=== PATIENT | female | born 1950 | race Caucasian/White ===

== ENCOUNTER 2019-11-26 08:48 | Outpatient (RCR) | payer MEDICARE, SELFPAY | END 2020-02-10 14:40 | disposition home or self-care (01) | LOC: PT 08:48 | DX: I25.10 Atherosclerotic heart disease of native coronary artery without angina pectoris (principal) | CPT/HCPCS: 93798 ==

== ENCOUNTER 2023-07-19 17:24 | Outpatient (CLI) | payer MEDICARE, SELFPAY ==
--- NOTE | 2023-07-19 17:40 | XR_ITS ---
PROCEDURE INFORMATION: Exam: XR Right Ankle Exam date and time: 07/19/2023 5:41 PM Age: 72 years old Clinical indication: Pain; Ankle; Right; Additional info: Right distal tib fib/ right ankle pain , swelling TECHNIQUE: Imaging protocol: Radiologic exam of the right ankle. Views: 3 or more views. COMPARISON: No relevant prior studies available. FINDINGS: Bones/joints: No acute fracture or dislocation. Calcaneal enthesophyte. Joint spaces preserved. Soft tissues: Soft tissue edema about the ankle. IMPRESSION: No acute osseous abnormality.
== END 2023-07-19 23:59 | disposition home or self-care (01) ==
LOC: RAD 17:29
PROVIDERS: PCP Physician Assistant; Visit Provider Internal Medicine Adolescent Medicine
DX: M25.571 Pain in right ankle and joints of right foot (principal)
CPT/HCPCS: 73610

== ENCOUNTER 2024-04-23 11:27 | Outpatient (CLI) | payer MEDICARE, SELFPAY ==
--- NOTE | 2024-04-23 11:32 | XR_ITS ---
FINAL REPORT CLINICAL HISTORY: ACURE RIGHT PAIN FINDINGS: RIGHT KNEE Three views were obtained. There is no fracture or dislocation. There is a large joint effusion. Calcifications are seen within the suprapatellar bursa, could represent synovial calcifications, mass, or old avulsion fracture fragment. Mild degenerative changes are present. IMPRESSION: Large joint effusion with calcifications in the suprapatellar bursa, possibly posttraumatic. CT correlation is recommended. Reviewed, Interpreted and Dictated by Kait Arreaga MD Transcribed by Robyn Andersen Authenticated and [facility]
== END 2024-04-23 23:59 | disposition home or self-care (01) ==
LOC: RAD 11:28
PROVIDERS: PCP Internal Medicine Adolescent Medicine; Visit Provider Internal Medicine Adolescent Medicine
DX: M25.561 Pain in right knee (principal)
CPT/HCPCS: 73562

== ENCOUNTER 2025-02-03 11:14 | Outpatient (CLI) | payer MEDICARE, SELFPAY ==
--- OUTSIDE RECORDS SUMMARY | 2024-12-12 01:43 | XMS_ITS | Continuity of Care Document ---
Author Organization [facility] Phone Care Team Providers Care Behavior Management Specialist Name Role Phone BRANDT WEBBER Primary Attending [phone] BRANDT WEBBER Admitting BRANDT WEBBER Unavailable BRANDT WEBBER Primary Care ALLERGIES AND ADVERSE REACTIONS ALLERGIES AND ADVERSE REACTIONS Code System Allergy Substance Adverse Reaction Date Reaction (Severity) Comment Status Reported By Updated [place] [id number] SNOMED CT SULFA ANTIBIOTICS Adverse reaction to substance u active [id number] on February 01, 2016 5:24:11 PM [facility] FAMILY HISTORY RELATION: Father Status: Cause of : Unknown Age at : Unknown SNOMED-CT Diagnosis Age At Onset [id number] Hypertensive disorder [id number] Heart disease RELATION: Mother Status: Cause of : Unknown Age at : Unknown SNOMED-CT Diagnosis Age At Onset [id number] Chronic obstructive lung disease RESULTS Patient: JERZY John Date of : October [birth year] LABORATORY RESULTS Information is not available LABORATORY NARRATIVE RESULTS Information is not available RADIOLOGY RESULTS ORDER 100: DE DEXA AXIAL (LO INC: [id number]) ORDER DATE: December 10, 2024 12:42:00 PM [facility] PERFORMING LAB: [address] [id number] Final Result Date: November 202024 1:04:[address] [place] [address] Name: SEAMUS BERTRAND Exam Date: 12/10/2024 : 1950 Age 74 years Gender: F Physician: BRANDT WEBBER Facility: [facility] Facility HSV: Outpatient Exam: DE DEXA AXIAL EXAMINATION: DUAL X-RAY ABSORPTIOMETRY (DXA) FOR BONE MINERAL DENSITY. CLINICAL INDICATION: Screening. CLINICAL HISTORY: 74 years old, Female. Postmenopausal. TECHNIQUE: An axial (e.g., hips, spine) and/or appendicular (e.g., radius) exam was performed, as appropriate, using Ooploo densitometer. Images are obtained for bone mineral density measurement and are not obtained for diagnostic purposes. [id number] COMPARISON: 06/16/2021. FINDINGS: Scan quality: Good. LUMBAR SPINE (L1-L4): BMD (in g/cm*2): 1.373. T-score: 1.6. Z-score: 3.2. Rate of change from previous exam: 4.5%. LEFT FOREARM (RADIUS 33%): BMD (in g/cm*2): 0.580. T-score: -1.9. Z-score: 0.1. Rate of change from previous exam: -14.0%. FRAX 10-YEAR PROBABILITY OF FRACTURE: FRAX not reported as there is no evaluable hip. IMPRESSION: Osteopenia based on BMD. World Health Organization criteria for BMD impression classify patients as: - Normal (T-score at or above -1.0). - Osteopenia (T-score between -1.0 and -2.5). - Osteoporosis (T-score at or below -2.5). Per the Bone Health and Osteoporosis Foundation the FRAX tool is most useful in patients with low femoral neck bone mineral density (osteopenia). FRAX is calculated per request. RECOMMENDATIONS: 1. All patients should optimize their calcium and vitamin D intake. 2. Consider FDA-approved medical therapies in postmenopausal women and men aged 50 years and older, based on the following: - A hip or vertebral (clinical or morphometric) fracture. - T-score less than or equal to -2.5 at the femoral neck or spine after appropriate evaluation to exclude secondary causes. - Low bone density (T-score between -1.0 and -2.5 at the femoral neck or spine) and a 10-year probability of a hip fracture greater than or equal to 3% or a 10-year probability of a major osteoporosis-related fracture greater than or equal to 20% based on FRAX calculation. - Clinician judgment and/or patient preferences may indicate treatment for people with 10-year fracture probabilities above or below these levels. Legally authenticated by DEONNA ELY MD 2024-12-10 09:04:53 - Further guidance on treatment can be found at the National Osteoporosis Foundation's website bonesource.org. 3. Patients with diagnosis of osteoporosis or at high risk for fracture should have regular bone mineral density tests. For patients eligible for Medicare, routine testing is allowed once every 2 years. The testing frequency can be increased to one year for patients who have rapidly progressing disease, those who are receiving or discontinuing medical therapy to restore bone mass or have additional risk factors. Electronically signed by: Stevan Hardin MD 12/10/2024 10:37 AM EDT Dictated By: Stevan Hardin Transcribed By: Transcribed On: 12/10/2024 9:04 AM Electronically signed by: Stevan Hardin 12/10/2024 Thank you for referring JERZY SEAMUS to [facility]. Legally authenticated by DEONNA ELY MD 2024-12-10 09:04:53 PATHOLOGY NARRATIVE RESULTS Information is not available MICROBIOLOGY RESULTS No Micro Labs/Results Exist for Patient BLOOD ADMIN RESULTS Information is not available MEDICATIONS HOME MEDICATIONS Status RXNORM NDC Medication Dose Route Frequency Dates Comments Reported By Updated By Drug Treatment Unknown DISCHARGE MEDICATIONS Status RXNORM NDC Medication Dose Route Frequency Dates Dis pense Data Comments Physician Updated By No Discharge Medication Info rmation Available INPATIENT MEDICATIONS Status RXNORM NDC Medication Dose Route Frequency Rat e Quantity Dates Indication Dispense Data Comments Physician Updated By No Inpatient Medication Info rmation Available SOCIAL HISTORY SOCIAL HISTORY - Smoking Status SNOMED-CT Social History Element Description Effective Dates Offered Cessation Comment Updated By [id number] Historical Tobacco smoking status Never Smoked [id number] on May 30, 2021 5:11:22 PM [facility] SOCIAL HISTORY - Gender Sex: Female SOCIAL HISTORY - Status : status i nformation is not available Intention in Next Year: intention information is not available SOCIAL HISTORY - Assessments Code System Description Status Date Value of Assessment Updated By Comment Assessment Information is no t available SOCIAL HISTORY - [place] Affiliation [place] information is not av ailable SOCIAL HISTORY - Legal Sex Legal Sex information is not available SOCIAL HISTORY - Sexual Behavior Sexual Orientation Gender Identity SNOMED-CT Description SNO MED -CT Description Activity Level No of Partners Partner Type UpdatedBy Information is not available SOCIAL HISTORY - Occupation Occupation information is no t available HEALTH CONCERNS Problems Concern Status Health Concern problem infor mation not available. Smoking Status Status Years Used Consumed packs p er day Health Concern smoking histo ry information not available. Family History Concern Status Health Concern family histor y information not available. ENCOUNTERS ENCOUNTER INFORMATION Reason for Visit DEXA Admission December 10, 2024 12:36:[address] [id number] Discharge December 10, 2024 12:36:00 PM [facility] DISCHARGED TO HOME OR SELF CARE ENCOUNTER DIAGNOSES Notes information is not demetra ilable. Code System Diagnosis Onset Date Diagnosis information is not available. ABSTRACT DIAGNOSES Code System Diagnosis Updated By Abatement Date Z13.820 ICD10 ENCOUNTER FOR SC REENING FOR OSTEOPOROSIS [id number] on December 08, 2024 12:03:50 PM [facility] Z13.820 ICD10 ENCOUNTER FOR SC REENING FOR OSTEOPOROSIS [id number] on December 12, 2024 6:40:49 AM [facility] M85.80 ICD10 OTHER SPECIFIED DISORDERS OF BONE DENSITY AND STRUCTURE, UNSPECIFIED SITE [id number] on December 12, 2024 6:40:53 AM [facility] CARE TEAM Care Behavior Management Specialist Role BRANDT WEBBER Primary Attending BRANDT WEBBER Admitting BRANDT WEBBER Referring BRANDT WEBBER Primary Care CARE TEAM CARE warehouse team member Role on Team Location Telecom Status Start Date End Mariusz e Updated By AKBAR CARLTON MD PCP normal December 08, 2024 12:03:50 PM [facility] December 10, 2024 12:36:00 PM [facility] [id number] on December 08, 2024 12:03:50 PM [facility] AKBAR CARLTON MD Referring normal December 08, 2024 12:03:50 PM [facility] December 10, 2024 12:36:00 PM [facility] [id number] on December 08, 2024 12:03:50 PM [facility] AKBAR CARLTON MD Attending normal December 08, 2024 12:03:50 PM [facility] December 10, 2024 12:36:00 PM [facility] [id number] on December 08, 2024 12:03:50 PM [facility] AKBAR CARLTON MD Admitting normal December 08, 2024 12:03:50 PM [facility] December 10, 2024 12:36:00 PM [facility] [id number] on December 08, 2024 12:03:50 PM [facility]
--- OUTSIDE RECORDS SUMMARY | 2025-01-19 09:40 | XMS_ITS | Encounter Summary ---
Author Organization [facility] Address [address] [place] [address] Care Team Providers Care Chief Accountant Name Role Phone Marco A Love MD Primary Care Provider [phone] Reason for Referral * Consultation (Routine) - Authorized Specialty Diagnoses / Procedures Referred By Contac t Referred To Contact Diagnoses Coronary artery disease due to lipid rich plaque Shawn Napoles MD [address] [place] [address] Phone: tel: fax: Referral ID Status Reason Start Date Expiration Date V isits Requested Visits Authorized [id number] Authorized 01/19/2025 07/21/2026 1 1 Encounter Details Date Type Department Care Team (Latest Contact Info) Description 01/19/2025 9:40 AM EST Office Visit [facility] [address], [address] [place] [address] Shawn Napoles MD [address] [place] [address] Hyperlipidemia, unspecified hyperlipidemia type (Primary Dx); Coronary artery disease due to lipid rich plaque Social History Tobacco Use Types Packs/Day Years Used Date Smoking Tobacco: Never Smokeless Tobacco: Never Alcohol Use Standard Drinks/Week Comments Never 0 (1 standard drink = 0.6 oz pur e alcohol) PHQ-2 Answer Date Recorded Patient Health Questionnaire-2 Score 0 01/19/2025 PHQ-9 Answer Date Recorded Patient Health Questionnaire-9 Score 0 01/19/2025 AUDIT-C Answer Date Recorded Q1: How often do you have a drink containing alcohol? Never 01/19/2025 Q2: How many drinks containi ng alcohol do you have on a typical day when you are drinking? Patient does not drink Q3: How often do you have si x or more drinks on one occasion? Never 01/19/2025 PHQ-2A Answer Date Recorded Patient Health Questionnaire-2 Score 0 01/22/2023 Comments No Sex and Gender Information Value Date Recorded Sex Assigned at Not on file Legal Sex Female 6:40 PM EDT Gender Identity Not on file Sexual Orientation Not on file documented as of this encounter Last Filed Vital Signs Vital Sign Reading Time Taken Comments Blood Pressure 132/75 01/19/2025 9:39 AM EST Pulse 53 01/19/2025 9:39 AM EST Temperature 36.7 C (98 F) 01/19/2025 9:34 AM EST Respiratory Rate 17 01/19/2025 9:34 AM EST Oxygen Saturation 97% 01/19/2025 9:34 AM EST Inhaled Oxygen Concentration - - Weight 69.4 kg (153 lb) 01/19/2025 9:34 AM EST Height 154.9 cm (5' 1 ) 01/19/2025 9:34 AM EST Body Mass Index 28.91 01/19/2025 9:34 AM EST documented in this encounter Functional Status * AUDIT-C Score Answer Date of Assessment Author 0 01/19/2025 9:34 AM EST Madeleine Hawley * Question Answer Date of Assessment Author Q1: How often do you have a drink containing alcohol? Never 01/19/2025 9:34 AM Madeleine Jean Q2: How many drinks containing alcohol do you have on a typical day when you are drinking? Patient does not drink 01/19/2025 9:34 AM Madeleine Jean Q3: How often do you have six or more drinks on one occasion? Never 01/19/2025 9:34 AM Madeleine Jean * Over the past 2 weeks, how often have you been bothered by any of the following problems? Question Answer Date of Assessment Author Little interest or pleasure in doing things Not at all 01/19/2025 9:49 AM Madeleine Jean Feeling down, depressed, or hopeless Not at all 01/19/2025 9:49 AM Madeleine Jean Patient Health Questionnaire -2 Score 0 01/19/2025 9:49 AM Madeleine Jean * Question Answer Date of Assessment Author Trouble falling or staying a sleep, or sleeping too much Not at all 01/19/2025 9:49 AM Madeleine Jean Feeling tired or having luciana le energy Not at all 01/19/2025 9:49 AM Madeleine Jean Poor appetite or overeating Not at all 01/19/2025 9: 49 AM Madeleine Jean Feeling bad about yourself - or that you are a failure or have let yourself or your family down Not at all 01/19/2025 9:49 AM Madeleine Jean Trouble concentrating on thi ngs, such as reading the newspaper or watching television Not at all 01/19/2025 9:49 AM Madeleine Jean Moving or speaking so slowly that other people could have noticed. Or the opposite - being so fidgety or restless that you have been moving around a lot more than usual Not at all 01/19/2025 9:49 AM Madeleine Jean Thoughts that you would be b jose carlos off or hurting yourself in some way Not at all 01/19/2025 9:49 AM Madeleine Jean Patient Health Questionnaire -9 Score 0 01/19/2025 9:49 AM Madeleine Jean * How difficult have these problems made it for you to do your work, take care of things at home, or get along with other people? Answer Date of Assessment Author Not difficult at all 01/19/2025 9:49 AM Madeleine Posey documented as of this encounter Miscellaneous Notes * Progress Notes - Shawn Napoles MD - 01/19/2025 9:40 AM EST Cardiology Clinic Note HPI: Rebecca Tinajero is a 74 y.o. female who presents for follow-up of coronary artery disease. Overall, she reports doing and feeling well since her last visit ~ 12 months ago. She continues to walk for exercise, typically 1/2 mile or twice around the block. On some occasions, she experiencesmild shortness of breath but recovers quickly. She has been engaging in physical therapy for her knee for DJD which includes gym exercises. The episodes of shortness of breath are transient, lasting only a ~2 minutes, and are not associated with other symptoms. She reports no chest pain, discomfort, pressure, or heaviness, and has not experienced any syncopal episodes. Her weight has decreased slightly to 153 pounds, with her stated goal weight being 135 pounds. She continues to take aspirin and reports no recent changes since her last visit. She carries nitroglycerin for safety as needed. Her cholesterol levels were last checked by Dr. Rodriguez about a month ago. PMH: Active Ambulatory Problems Diagnosis Date Noted Arthritis of carpometacarpal (CMC) joints of both thumbs 09/19/2016 CAD (coronary artery disease) 01/06/2020 Degenerative arthritis of hip 09/18/2012 HLD (hyperlipidemia) 11/13/2019 HTN (hypertension) 11/13/2019 Left hip pain 09/18/2012 Neck pain 09/25/2022 Old myocardial infarction 11/18/2019 Other specified disorders of muscle 12/18/2018 Primary osteoarthritis of right knee 12/18/2018 Resolved Ambulatory Problems Diagnosis Date Noted History of repair of hip joint 12/04/2012 Pain of right hand 12/06/2022 Past Medical History: Diagnosis Date Personal history of other diseases of the circulatory system Personal history of other endocrine, nutritional and metabolic disease Personal history of other endocrine, nutritional and metabolic disease Personal history of other endocrine, nutritional and metabolic disease PMH: CAD, h/o anterior STEMI (10/2019) s/p PCI complicated by in-stent thrombosis. HTN Hyperlipidemia SH: Lives with in [place], [place] Former tobacco use, no current tobacco, ETOH, or illicit drug use. FH: Her father at 66 from a heart condition and was a heavy smoker. Her mother at 76 from a heart condition and was also a heavy smoker. Her father had a heart attack in his early 20s. Her two sisters from drug-related issues. She is not aware of any heart attacks or strokes in her siblings. Current Medications: Medications Ordered Prior to Encounter[1] ROS: Review of Systems Musculoskeletal: Positive for arthritis and joint pain. All other systems reviewed and are negative. PE: Visit Vitals BP 132/75 (BP Location: Left arm, Patient Position: Sitting, BP Cuff Size: Adult) Pulse 53 Temp 36.7 ??C (98 ??F) (Oral) Ht 1.549 m (5' 1 ) Wt 69.4 kg (153 lb) SpO2 97% BMI 28.91 kg/m?? Physical Exam Constitutional: General: She is not in acute distress. Appearance: She is not ill-appearing. HENT: Head: Normocephalic and atraumatic. Eyes: Extraocular Movements: Extraocular movements intact. Pupils: Pupils are equal, round, and reactive to light. Neck: Vascular: Normal carotid pulses. No carotid bruit, hepatojugular reflux or JVD. Cardiovascular: Rate and Rhythm: Regular rhythm. Bradycardia present. Pulses: Carotid pulses are 2+ on the right side and 2+ on the left side. Radial pulses are 2+ on the right side and 2+ on the left side. Heart sounds: S1 normal and S2 normal. No murmur heard. No gallop. Pulmonary: Effort: Pulmonary effort is normal. Breath sounds: Normal breath sounds. Abdominal: General: Bowel sounds are normal. There is no distension. Palpations: Abdomen is soft. Tenderness: There is no abdominal tenderness. Musculoskeletal: Cervical back: Neck supple. Right lower leg: No edema. Left lower leg: No edema. Skin: General: Skin is warm and dry. Neurological: Mental Status: She is alert and oriented to person, place, and time. Motor: No weakness. Psychiatric: Mood and Affect: Mood normal. Behavior: Behavior normal. Labs: No additional or new labs Cardiographics: EC01/2025 Sinus bradycardia, 58 bpm; leftward mean QRS axis associated with a normal mean T wave axis; poor Rwave progression; isoelectric ST segments. Echocardiographic Findings Left Ventricle Based on the linear dimension and/or 2D volumes, the left ventricle is normal in size. There is normal left ventricular myocardial thickness and mass. The left ventricular systolic function is reduced. The LVEF is visually estimated at 55 - 60%. The left ventricular filling pressure is elevated. The anterior wall is hypokinetic. Right Ventricle The right ventricle is normal in size. The right ventricular basal diameter is normal (25-41 mm). The right ventricular mid-cavity diameter is normal (19-35 mm). The right ventricularsystolic function is normal. The estimated global right ventricular systolic function based upon the TDI maximal systolic velocity is normal (>=9.5 cm/s). The spectral Doppler envelope of TR is not adequate for calculating the right ventricular systolic pressure (RVSP). Based upon other 2D and Doppler features, the RVSP is probably normal or at most mildly elevated. Left Atrium The left atrial size is normal with an indexed volume of 16-34 mL/m2. The interatrial septum is intact with no evidence for an atrial septal defect. Right Atrium The right atrial volume index is normal (18-32mL/m2). Aortic Valve The aortic valve appears to be trileaflet. There is no valvular regurgitation. There is no hemodynamically significant valvular aortic stenosis. Mitral Valve The mitral valve was not well visualized. There is mild to moderate mitral regurgitation with an eccentric jet that originates at the anteromedial commissure. There is no mitral stenosis. Tricuspid Valve The tricuspid valve is normal in appearance. There is trace tricuspid regurgitation. There is no tricuspid stenosis. Pulmonic Valve There is mild pulmonic regurgitation. There is no pulmonic stenosis. Great Vessels The aortic root is normal in size. In the maximally visualized portion, the ascendingaorta appears normal in size. The main pulmonary artery is not well visualized. IVC/SVC Based on the IVC size and respiratory variation, the estimated right atrial pressure is 3mmHg. Pericardium No pericardial effusion. Extracardiac There is no pleural effusion. Assessment: CAD - hx of [place] 10/2019, s/p PCI to LAD complicated by in-stent thrombosis, s/p PCI-->LAD; asymptomatic and clinically appears well. No signs or symptoms of overt heart failure. Continue with current medical management. HTN - reasonably well controlled. Hyperlipidemia - well controlled on high potency statin; patient reports recent cholesterol panel obtained by her PCP; will obtain results for review. Goal LDL <55 mg/dL. Plan: Continue current medical management. RTC in 1 year. Time Spent:I spent 30 minutes of a total visit of 30 minutes in counseling/ direct management/discussion/coordination of patient's care. Shawn Napoles MD, PhD [facility], [facility] [place] [address] [email or web address] [[email or web address]] Current Outpatient Medications on File Prior to Visit Medication Sig Dispense Refill aspirin 81 MG EC tablet Take 1 tablet (81 mg) by mouth 1 (one) time each day. lisinopril 20 MG tablet Take 1 tablet (20 mg total) by mouth 1 (one) time each day. 90 tablet 3 metoprolol succinate XL (Toprol-XL) 200 MG 24 hr tablet Take 1 tablet (200 mg total) by mouth 1 (one) time each day. 90 tablet 3 nitroglycerin (Nitrostat) 0.[address] 1 tablet (0.4 mg total) under the tongue every 5 (five) minutes if needed for chest pain. 90 tablet 1 rosuvastatin (Crestor) 40 MG tablet Take 1 tablet by mouth daily 90 tablet 3 spironolactone (Aldactone) 25 MG tablet Take 1 tablet (25 mg total) by mouth 1 (one) time each day.90 each 3 No current facility-administered medications on file prior to visit. documented in this encounter Plan of Treatment Upcoming Encounters Date Type Department Care Team (Late st Contact Info) Description 01/25/2026 9:00 AM EST Office Visit [facility] [address], [address] [place] [address] Shawn Napoles MD [address] [place] [address] Scheduled Referrals Name Type Priority Associated Diagnoses Order Schedule Follow Up Cardiology Outpatient Referral Routine Coronary artery disease due to lipid rich plaque Expected: 01/19/2026, Expires: 07/20/2026 documented as of this encounter Procedures Procedure Name Priority Date/Time Associated Diagnosis Comments ECG ADULT Routine 01/19/2025 9:41 AM EST Hyperlipidemia, unspecified hyperlipidemia type documented in this encounter Results * ECG Adult (01/19/2025 9:41 AM EST) EKG DIAGNOSIS CLASS Abnormal MUSE ECG Ventricular Rate 58 BPM MUSE ECG Atrial Rate 58 BPM MUSE ECG OK Interval 190 ms MUSE ECG QRSD Interval 74 ms MUSE ECG QT Interval 420 ms MUSE ECG QTC Interval 412 ms MUSE ECG P [place] 54 degrees MUSE ECG R [place] 10 degrees MUSE ECG T Wave [place] 63 degrees MUSE ECG Diagnosis Sinus bradycardia MUSE ECG Diagnosis Low voltage QRS MUSE ECG Diagnosis Septal infarct , age undetermined MUSE ECG Diagnosis Poor R-wave progression MUSE ECG Diagnosis Abnormal ECG MUSE ECG Diagnosis MUSE ECG Diagnosis Confirmed by Antonio Lubin ([id number]) on 01/19/2025 9:50:36 AM MUSE ECG 01/19/2025 9:41 AM EST 01/19/2025 9:50 AM EST us Shawn Napoles MD ECG ORDERABLES Final Result MUSE ECG documented in this encounter Visit Diagnoses Diagnosis Hyperlipidemia, unspecified hyperlipidemia type- Primary Coronary artery disease due to lipid rich plaque documented in this encounter Additional Health Concerns Assessment Noted Time PHQ-9 Depression Total Score: 0 01/20/20 25 9:49 AM EST A fall risk assessment has been complete d for the patient 01/19/2025 9:49 AM EST A Body Mass Index follow-up plan has been documented for the patient 01/19/2025 11:35 AM EST documented as of this encounter Care Teams Chief Accountant Relationship Specialty Start Date End Date Marco A Love MD [address] [place] [address] PCP - General Internal Medicine 12/06/22 documented as of this encounter
--- OUTSIDE RECORDS SUMMARY | 2025-02-03 11:19 | XMS_ITS | Encounter Summary ---
Author Organization Healthcare Address [address] [place] [address] Care Team Providers Care Professor Of Nursing Name Role Phone Marco A Love MD Primary Care Provider [phone] Encounter Details Date Type Department Care Team (Latest Contact Info) Description 01/19/2025 Travel Social History Tobacco Use Types Packs/Day Years [...] on file documented as of this encounter Functional Status * AUDIT-C Score Answer Date of Assessment Author 0 01/19/2025 9:34 AM Madeleine Jean * Question Answer Date [...] Not difficult at all 01/19/2025 9:49 AM EST Willyfela Madeleine bennett documented as of this encounter Plan of Treatment Upcoming Encounters Date Type Department Care Team (Late st Contact Info) Description 01/25/2026 9:00 AM EST Office Visit [facility] [address], [address] [place] [address] Shawn Napoles MD [address] [place] [address] documented as of this encounter Visit Diagnoses Not on filedocumented in this encounter Additional Health Concerns Assessment Noted Time PHQ-9 Depression Total Score: 0 01/20/20 25 9:49 AM EST A fall risk assessment has been complete d for the patient 01/19/2025 9:49 AM EST A Body Mass Index follow-up plan has been documented for the patient 01/19/2025 11:35 AM EST documented as of this encounter Care Teams Professor Of Nursing Relationship Specialty Start Date End Date Marco A Love MD [address] [place] [address] PCP - General Internal Medicine 12/06/22 documented as of this encounter
--- OUTSIDE RECORDS SUMMARY | 2025-02-03 11:19 | XMS_ITS | Encounter Summary ---
Author Organization [facility] Address [address] [place] [address] Care Team Providers Care Personal Computer Network Analyst Name Role Phone Marco A Love MD Primary Care Provider [phone] Encounter Details Date Type Department Care Team (Latest Contact Info) Description 01/15/2025 Travel Social History Tobacco Use Types Packs/Day Years Used Date Smoking Tobacco: Never Smokeless Tobacco: Never Alcohol Use Standard Drinks/Week Comments Never 0 (1 standard drink = 0.6 oz pur e alcohol) PHQ-2 Answer Date Recorded Patient Health Questionnaire-2 Score 0 01/21/2024 PHQ-9 Answer Date Recorded Patient Health Questionnaire-9 Score 0 01/21/2024 PHQ-2A Answer Date Recorded Patient Health Questionnaire-2 Score 0 01/22/2023 Comments No Sex and Gender Information Value Date Recorded Sex Assigned at Not on file Legal Sex Female 6:40 PM EDT Gender Identity Not on file Sexual Orientation Not on file documented as of this encounter Plan of Treatment Upcoming Encounters Date Type Department Care Team (Late st Contact Info) Description 01/25/2026 9:00 AM EST Office Visit [facility] [address], [address] [place] [address] Shawn Napoles MD [address] [place] [address] documented as of this encounter Visit Diagnoses Not on filedocumented in this encounter Additional Health Concerns Assessment Noted Time PHQ-9 Depression Total Score: 0 01/21/20 3:15 PM EST A fall risk assessment has been complete d for the patient 01/21/2024 3:19 PM EST A Body Mass Index follow-up plan has been documented for the patient 01/21/2024 11:53 AM EST documented as of this encounter Care Teams Personal Computer Network Analyst Relationship Specialty Start Date End Date Marco A Love MD [address] [place] [address] PCP - General Internal Medicine 12/06/22 documented as of this encounter
--- OUTSIDE RECORDS SUMMARY | 2025-02-03 11:21 | XMS_ITS | Clinical Summary ---
Author Organization [facility] ([place], [place], [place], [place], [place]) Address [address] [place] [address] Care Team Providers Care Electrical And Radio Mock Up Mechanic Name Role Phone Marco A Love MD Primary Care Provider [phone] Allergies No known active allergies Medications rosuvastatin (CRESTOR) 40 MG tablet Take 1 tablet (40 mg total) by mouth daily. Active metoprolol succinate (TOPROL-XL) 200 MG 24 hr tablet Take 1 tablet (200 mg total) by mouth daily. Active spironolactone (ALDACTONE) 25 MG tablet Take 1 tablet (25 mg total) by mouth daily. Active lisinopriL (PRINIVIL,ZESTRI L) 20 MG tablet Take 1 tablet (20 mg total) by mouth daily. Active aspirin 81 MG EC tablet Take 1 tablet (81 mg total) by mouth daily. Active Social History Tobacco Use Types Packs/Day Years Used Date Smoking Tobacco: Never Assessed Family and Community Support Answer Mariusz e Recorded Help with Day to Day Activities Not on file 10/11/2023 Feeling Lonely or Isolated Not on file 10/10 Educational Attainment Answer Date Lg rded Speak language other than Kazakh at home Not on file 10/11/2023 Want help with school or training Not on file 10/11/2023 Substance Use Answer Date Recorded Used prescription meds for non-medical reasons N ot on file 10/11/2023 Used illegal drugs past 12 months Not on file 10/11/2023 Comments Unknown Sex and Gender Information Value Date Recorded Sex Assigned at Not on file Legal Sex Female 5:57 PM CDT Gender Identity Not on file Sexual Orientation Not on file Last Filed Vital Signs Vital Sign Reading Time Taken Comments Blood Pressure 127/69 10/11/2023 9:21 AM EDT Pulse 71 10/11/2023 9:21 AM EDT Temperature 36.8 C (98.2 F) 10/11/2023 9:21 AM EDT Respiratory Rate 20 10/11/2023 9:21 AM EDT Oxygen Saturation 98% 10/11/2023 9:21 AM EDT Inhaled Oxygen Concentration - - Weight 71 kg (156 lb 9.6 oz) 10/11/2023 6:49 AM EDT Height - - Body Mass Index - - Plan of Treatment Health Maintenance Due Date Last Done Comments CT Colonography 1952 Colonoscopy 1952 Colorectal Cancer Screening 1952 DXA SCAN 1952 FOBT/FIT 1952 Fit-DNA (Cologuard) 1952 Sigmoidoscopy 1952 Depression Screening (12+) 1964 Tobacco Cessation Counseling and Screening (12+) 10/12 Hepatitis C Screening 1970 DTAP/TDAP/TD VACCINES (1 - Tdap) 10/13/1971 Breast Cancer Screening 1992 Pneumococcal 50+ years (1 of 1 - PCV) 2002 Shingles Vaccine (Zoster) (1 of 2) 2002 Medicare Initial AWV [id number] 09/20/2018 Falls Risk Screening 02/20/2024 COVID-19 VACCINE (1 - 2023- season) 2024 Influenza Vaccine (#1) 2024 Respiratory Syncytial Virus (RSV) Adult or (1 - 1-dose 75+ series) 10/13/2027 [place] [id number] Advance Directives For more information, please contact: [phone] * Full Code (Latest Code Status on File) Date Activated Date Inactivated Comments 10/11/2023 5:33 AM 10/11/2023 10:34 AM Care Teams Electrical And Radio Mock Up Mechanic Relationship Specialty Start Date End Date Marco A Love MD [address] [place] [address] [place] [address] PCP - General Adolescent Medicine 10/10/23
--- OUTSIDE RECORDS SUMMARY | 2025-02-03 11:21 | XMS_ITS | Encounter Summary ---
Author Organization Healthcare Address [address] [place] [address] Care Team Providers Care Mask Former Name Role Phone Kenneth Iyer MD Primary Care Provider [phone] Marco A Love MD Primary Care Provider [phone] Reason for Visit * Reason Comments Med Refill Encounter Details Date Type Department Care Team (Late st Contact Info) Description 04/22/2021 Refill [facility] [email or web address] [place] [address] Shawn Napoles MD [address] [place] [address] Social History Tobacco Use Types Packs/Day Years Used Date Smoking Tobacco: Never Smokeless Tobacco: Never Comments Unknown Sex and Gender Information Value Date Recorded Sex Assigned at Not on file Legal Sex Female 6:40 PM EDT Gender Identity Not on file Sexual Orientation Not on file documented as of this encounter Plan of Treatment Upcoming Encounters Date Type Department Care Team (Late st Contact Info) Description 01/25/2026 9:00 AM EST Office Visit [facility] [address], [address] [place] [address] Shawn Napoles MD [address] [place] [address] documented as of this encounter Visit Diagnoses Not on filedocumented in this encounter Additional Health Concerns Assessment Noted Time A fall risk assessment has been complete d for the patient 01/17/2021 10:32 AM EST documented as of this encounter Care Teams Mask Former Relationship Specialty Start Date End Date Kenneth Iyer MD [address] [place] [address] PCP - General 07/02/20 12/05/22 Marco A Love MD [facility] [address] [place] [address] PCP - General Internal Medicine 12/06/22 documented as of this encounter
--- OUTSIDE RECORDS SUMMARY | 2025-02-03 11:21 | XMS_ITS | Clinical Summary ---
Author Organization [facility] Address [address] [place] [address] Care Team Providers Care Camera Maker Name Role Phone Marco A Love MD Primary Care Provider [phone] Allergies Active Allergy Reactions Criticality Noted Date Comments Sulfa Drugs Rash Low 01/19/2025 Medications aspirin 81 MG EC tablet Take 1 tablet (81 mg) by mouth 1 (one) time each day. Active rosuvastatin (Crestor) 40 MG tabletIndications: Mixed hyperlipidemia Take 1 tablet by mouth daily 90 tablet 3 2 Active spironolactone (Aldactone) 25 MG tabletIndications: Coronary artery disease due to lipid rich plaque Take 1 tablet (25 mg total) by mouth 1 (one) time each day. 90 each 3 2 Active metoprolol succinate XL (Toprol-XL) 200 MG 24 hr tabletIndications: Coronary artery disease due to lipid rich plaque,Primary hypertension Take 1 tablet (200 mg total) by mouth 1 (one) time each day. 90 tablet 3 2 Active lisinopril 20 MG tabletIndications: Coronary artery disease due to lipid rich plaque,Primary hypertension Take 1 tablet (20 mg total) by mouth 1 (one) time each day. 90 tablet 3 2 Active nitroglycerin (Nitrostat) 0.4 MG SL tabletIndications: Coronary artery disease due to lipid rich plaque Place 1 tablet under the tongue every 5 minutes as needed for chest pain. 90 tablet 1 5 01/20/20 26 Active nitroglycerin (Nitrostat) 0.4 MG SL tabletIndications: Coronary artery disease due to lipid rich plaque Place 1 tablet (0.4 mg total) under the tongue every 5 (five) minutes if needed for chest pain. 90 tablet 1 2 01/20/20 25 Discontin ued(Reord er) Active Problems Problem Noted Date Diagnosed Date Neck pain 09/25/2022 CAD (coronary artery disease) 01/06/2020 Old myocardial infarction 11/18/2019 HLD (hyperlipidemia) 11/13/2019 HTN (hypertension) 11/13/2019 Other specified disorders of muscle 12/18/2018 Primary osteoarthritis of right knee 12/18/2018 Arthritis of carpometacarpal (CMC) joints of bot h thumbs 09/19/2016 Degenerative arthritis of hip 09/18/2012 Left hip pain 09/18/2012 Resolved Problems Problem Noted Date Diagnosed Date Resolved Date Pain of right hand 12/06/2022 5 History of repair of hip joint 12/04/2012 01/11/2025 Overview (01/11/2024): 11/05/2014 Right SANTIAGO [place] TMZF #2/12 Femur, 36 mm x -5 mm Biolox delta ceramic femoral head, 50 mm Trident PSL acetabular shell with 2 dome screws and 10 degree poly liner Encounters Date Type Department Care Team Description 01/19/2025 9:40 AM EST Office Visit [facility] [place] [address], [address] [place] [address] Shawn Napoles MD Hyperlipidemia, unspecified hyperlipidemia type (Primary Dx); Coronary artery disease due to lipid rich plaque 01/19/2025 Travel 01/15/2025 Travel from Last 3 Months Immunizations Immunization Administration Dates Next Due Influenza Vaccine, Quadrivalent, Adjuvanted 09/2021 Influenza, High-dose, Split Virus, Trivalent, Injectable, preservative free 12/18/2023,12/05/2022 Influenza, high-dose, quadrivalent 12/05/2022 Pneumococcal Polysaccharide PPV23 11/18/2018 Rsvpref, Recombinant, Protein Subunit, Adjuvent 01/25/2023 Zoster, Recombinant 01/25/2023,08/03/2022 Family History Medical History Relation Name Comments Cardiac disorder Father Hypertension Father Cardiac disorder Mother Relation Name Status Comments Father Mother Social History Tobacco Use Types Packs/Day Years Used Date Smoking Tobacco: Never Smokeless Tobacco: Never Tobacco Cessation:Counseling Given: Not Answered Alcohol Use Standard Drinks/Week Comments Never 0 [...] Mass Index 28.91 01/19/2025 9:34 AM EST Plan of Treatment Upcoming Encounters Date Type Department Care Team (Late st Contact Info) Description 01/25/2026 9:00 AM EST Office Visit [facility] [place] [address], [address] [place] [address] Shawn Napoles MD [address] [place] [address] Health Maintenance Due Date Last Done Comments [facility]-Bone Density Scan 1950 [facility]-Hepatitis C Screening 1950 [facility]-Medicare Annual Wellness (AWV) 1950 [facility]-Infant/Child/Adol SDOH Screenings 1950 [facility]- SDOH Screenings 1970 [facility]-Adult SDOH Screenings 1970 [facility]-DTaP,Tdap,and Td Vaccines (1 - Tdap) 10/13/1971 CT Colonography 1997 Colonoscopy 1997 FIT-DNA 1997 FIT 1997 FOBT 1997 Sigmoidoscopy 1997 [facility]-Colorectal Cancer Screening 1997 [facility]-Breast Cancer Screening 2002 [facility]-Pneumococcal Vaccine: 50+ Years (2 of 2 - PCV) 11/19/2019 11/18/2018 [id number] Vaccine ( season) 2024 11/26/2021, 07/15/2021, 12/14/2020, Additional history exists [facility]-Depression Screening 01/19/2026 01/19/2025, 1202/2024 [facility]-RSV Vaccine: 60+ Years or Completed 01/25/2023 [facility]-Zoster Vaccines Completed 01/25/2023, [facility]-Influenza Vaccine Completed 12/04/2024 , 12/18/2023, 12/05/2022, Additional history exists [facility]-Obesity Intervention Completed 025, 01/21/2024, 01/22/2023, Additional history exists HPV Vaccines (No Doses Required) Completed [facility]-HIB Vaccines Aged Out No longer e ligible based on patient's age to complete this topic [facility]-Hepatitis A Vaccines Aged Out No longer eligible based on patient's age to complete this topic [facility]-IPV Vaccines Aged Out No longer e ligible based on patient's age to complete this topic [facility]-Rotavirus Vaccines Aged Out No lo nger eligible based on patient's age to complete this topic Procedures Procedure Name Priority Date/Time Associated Diagnosis Comments ECG ADULT Routine 01/19/2025 9:41 AM EST Hyperlipidemia, unspecified hyperlipidemia type from Last 3 Months Results * ECG Adult (01/19/2025 9:41 AM EST) EKG DIAGNOSIS CLASS Abnormal MUSE ECG Ventricular Rate 58 BPM MUSE ECG Atrial Rate 58 BPM MUSE ECG UT Interval 190 ms MUSE ECG QRSD Interval 74 ms MUSE ECG QT Interval 420 ms MUSE ECG QTC Interval 412 ms MUSE ECG P [place] 54 degrees MUSE ECG R [place] 10 degrees MUSE ECG T Wave [place] 63 degrees MUSE ECG Diagnosis Sinus bradycardia MUSE ECG Diagnosis Low voltage QRS MUSE ECG Diagnosis Septal infarct , age undetermined MUSE ECG Diagnosis Poor R-wave progression MUSE ECG Diagnosis Abnormal ECG MUSE ECG Diagnosis MUSE ECG Diagnosis Confirmed by Antonio Lubin ([id number]) on 01/19/2025 9:50:36 AM MUSE ECG 01/19/2025 9:41 AM EST 01/19/2025 9:50 AM EST us Shawn Napoles MD ECG ORDERABLES Final Result MUSE ECG from Last [address] [place] [address] [facility] MEDIC[facility] Care Teams Camera Maker Relationship Specialty Start Date End Date Marco A Love MD [address] [place] [address] PCP - General Internal Medicine 12/06/22
--- OUTSIDE RECORDS SUMMARY | 2025-02-03 11:21 | XMS_ITS | Clinical Summary ---
Author Organization [facility] Address [address] [place] [address] Care Team Providers Care Pet Sitting Name Role Phone None, Physician Primary Care Provider Unavailabl e Allergies No known active allergies Medications lisinopril (PRINIVIL) 20 MG tablet Take 20 mg by mouth daily. 12/07/2019 Active rosuvastatin (CRESTOR) 40 MG tablet Take 40 mg by mouth daily. 12/10/2019 Active aspirin 81 MG EC tablet Take 81 mg by mouth daily. 12/07/2019 Active metoprolol (TOPROL-XL) 200 MG 24 hr tablet Take 200 mg by mouth daily. 12/07/2019 Active spironolactone (ALDACTONE) 25 MG tablet Take 25 mg by mouth daily. 12/11/2019 Active nitroglycerin (NITROSTAT) 0.[address] 0.4 mg under the tongue every 5 (five) minutes as needed for Chest pain. Active Active Problems Problem Noted Date Diagnosed Date Hamstring tightness of left lower extremity 11/21 Hamstring tightness of right lower extremity Acute pain of left knee 12/18/2018 Acute pain of right knee 12/18/2018 Primary osteoarthritis of right knee 12/18/2018 Bilateral thumb CMC arthritis 09/19/2016 S/P Right hip replacement 11/05/2014 11/05/2014 Overview (11/05/2014): 11/05/2014 Right SANTIAGO [place] TMZF #2/12 Femur, 36 mm x -5 mm Biolox delta ceramic femoral head, 50 mm Trident PSL acetabular shell with 2 dome screws and 10 degree poly liner Primary osteoarthritis of right hip 09/09/2014 Osteoarthritis of right hip 07/01/2013 Right hip pain 07/01/2013 S/P Left hip replacement 12/04/2012 12/04/2012 Overview (11/05/2014): 12/04/2012 Left SANTIAGO [place] TMZF #2/12 Femur, 36 mm x -2.5 mm Biolox delta ceramic femoral head, 50 mm Trident PSL acetabular shell with 2 dome screws and 10 degree poly liner Degenerative arthritis of Left hip 09/18/2012 Left hip pain 09/18/2012 Family History Relation Status Comments Brother Alive Father Mother Sister Alive Social History Tobacco Use Types Packs/Day Years Used Date Smoking Tobacco: Never Smokeless Tobacco: Never Alcohol Use Standard Drinks/Week Comments No 0 (1 standard drink = 0.6 oz pur e alcohol) Comments No Sex and Gender Information Value Date Recorded Sex Assigned at Not on file Legal Sex Female 12:46 PM EDT Gender Identity Not on file Sexual Orientation Not on file Last Filed Vital Signs Vital Sign Reading Time Taken Comments Blood Pressure 134/76 04/21/2015 8:22 AM EST Pulse 96 04/21/2015 8:22 AM EST Temperature 36.4 C (97.5 F) 12/30/2019 8:57 AM EST Respiratory Rate - - Oxygen Saturation - - Inhaled Oxygen Concentration - - Weight 70.8 kg (156 lb) 01/09/2024 9:42 AM EST Height 154.9 cm (5' 1 ) 01/09/2024 9:42 AM EST Body Mass Index 29.48 01/09/2024 9:42 AM EST Plan of Treatment Health Maintenance Due Date Last Done Comments Breast Cancer Screening 1952 CT Colonography 1952 Colonoscopy 1952 Colorectal Cancer Screening 1952 FIT-DNA 1952 FIT 1952 FOBT 1952 Hepatitis C Screening 1952 Sigmoidoscopy 1952 Tdap/Td Vaccine >11 yo (1 - Tdap) 10/13/1971 Osteoporosis Screening 2017 Pneumococcal Vaccines >50 yo (2 of 2 - PCV) 11/19/2019 11/18/2018 Annual SDOH Screening 02/20/2024 Medicare Advantage Annual Wellness Visit (AWV) 02/20/2024 PAF (Practitioner Assessment Form) 02/20/2024 Influenza Vaccine (#1) 2024 , 12/05/2022, 11/26/2021 RSV 50+ and Completed 01/25/2023 Shingles (Shingrix) Completed 01/25/2023, 08/03/2022 Haemophilus Influenzae Type B (Hib) Vaccine Aged Out No longer eligible b ased on patient's age to complete this topic Hepatitis A (HepA) Vaccine Aged Out N o longer eligible based on patient's age to complete this topic Hepatitis B (HepB) Vaccine Aged Out N o longer eligible based on patient's age to complete this topic Meningococcal ACWY Aged Out No longer eligible based on patient's age to complete this topic Polio (IPV) Aged Out No longer eligi ble based on patient's age to complete this topic Rotavirus (RV) Vaccine Aged Out No lo nger eligible based on patient's age to complete this topic Insurance [facility] MEDICARE REPLACEMENT Care Teams Pet Sitting Relationship Specialty Start Date End Date None, Physician PCP - General 09/09/14
--- OUTSIDE RECORDS SUMMARY | 2025-02-03 11:21 | XMS_ITS | Referral Summary ---
Author Organization [facility] ([place], [place], [place], [place], [place]) Address [address] [place] [address] Care Team Providers Care Senior Medical Technologist Name Role Phone Marco A Love MD Primary Care Provider + [phone] Allergies No known active allergies Medications rosuvastatin [...] Date Lg rded Speak language other than [place] Citizen at home Not on file 10/11/2023 Want [...] Mass Index - - Plan of Treatment Not on file Insurance [employer] MEDICARE HMO Advance Directives For more information, please contact: [phone] * Full Code (Latest Code Status on File) Date Activated Date Inactivated Comments 10/11/2023 5:33 AM 10/11/2023 10:34 AM Care Teams Senior Medical Technologist Relationship Specialty Start Date End Date Marco A Love MD [address] [place] [address] [place] [address] PCP - General Adolescent Medicine 10/10/23
--- OUTSIDE RECORDS SUMMARY | 2025-02-03 11:21 | XMS_ITS | Patient Health Record ---
Author Organization [facility] bhatt Billing Info Address [address] [place] [id number] Phone [phone] Support Name Relationship Address Phone Rebecca Tinajero Self - patient is the insured [address] [place] [address] [phone] Reason For Referral No Information Social History Sex Observation Social History Observation Description Sex Observation Female Social History Social History Social Info Question Answer Notes Tobacco Status: Patient is a former smoker packs per day 1 High Risk for Sexually Acqui red Diseases including HIV: At Risk: No Illicit Drug Use: Patient/Family reports: No illicit d rug use Alcohol Use: Patient does not use alcohol *DO NOT USE * Tobacco Statu s (CQW): Patient is Never smoker Health Literacy: Are medication label s often written in a way that is easy to read and understand? Yes Do you have problems complet ing medical forms because of difficulty understanding the instructions? Yes Concerns: Social Concerns: No Financial Concerns: No Personal Safety: Has anyone close to you ever threaten ed to hurt you? No Has anyone ever hit, kicked, choked, or hurt you physically? No Has anyone ever forced you to have sex? No Are you afraid of your partner? No Provider suspects: No abuse Discussed Gun Safety: Not applicable Do you wear a seat belt ? Yes Do you feel unsafe where you live? No Ambulatory Status: : is independent Living Environment: Reported as: House/Condo/Apartment Plan Of Treatment No Information
[2025-02-03 11:25] VITALS: BP 174/72; PULSE 76; RESP 20; O2SAT 97
[2025-02-03] MEDS: DENOSUMAB 60 MG/ML SYRINGE SUBCUT (11:25)
== END 2025-02-03 23:59 | disposition home or self-care (01) ==
LOC: INF 11:16
PROVIDERS: PCP Internal Medicine Adolescent Medicine; Visit Provider Physician Assistant
DX: M81.0 Age-related osteoporosis without current pathological fracture (principal)
CPT/HCPCS: 96372; J0897